=== PATIENT | female | born 2000 | race Caucasian/White ===

== ENCOUNTER 2021-01-20 21:05 | Emergency (ER) | payer OTHER ==
[~2021-01-20] VITALS: Ht 162.6 cm; Wt 115.7 kg
[2021-01-20] MEDS ORDERED: CEPHALEXIN500 MG PO (23:12)
[2021-01-20] MEDS ORDERED: BACTRIM DS TAB1 EACH PO (23:12)
== END 2021-01-20 23:35 | disposition home or self-care (01) ==
LOC: ED 21:05
DX: L03.113 Cellulitis of right upper limb (principal)
CPT/HCPCS: 99282; A9270